=== PATIENT | male | born 1945 | race Caucasian/White ===

== ENCOUNTER 2016-11-19 13:44 | Inpatient (IN) ==
[2016-11-19] MEDS ORDERED: Lidocaine 1% 20 ML MDV ID ONE (14:11)
[2016-11-19] MEDS ORDERED: CeFAZolin Pre 2,000 MG/100 ML 2,000 MG/100 ML BAG IVPB ONE (14:11)
[2016-11-19] MEDS ORDERED: Acetaminophen IV 1,000 MG/100 ML INFUS..BTL IVPB ONE (14:18)
[2016-11-19] MEDS ORDERED: Famotidine 20 MG/2 ML VIAL IVP ONE (14:18)
--- NOTE | 2016-11-19 14:21 | Anesthesia Evaluation PreOp ---
Date of Encounter: 11/19/16 Time of Encounter: 14:20 - Past History Planned Operation: TURP Cardiac History: Denies any Significant Hx Pulmonary History: Denies Any Significant HX BUSPERSON History: Denies Any Significant HX Other Medical History: Renal (CKD), Diabetes Type II (Accu check 117) Anesthesia History: No Prior Anesthetic Complications Alcohol Use: none Drug use: none Medications and Allergies Aspirin 81 mg PO DAILY #30 tab.chew 05/31/16 [Rx] Ciprofloxacin [Cipro] 500 mg PO BID #20 tablet 05/31/16 [Rx] Indomethacin, Submicronized [Tivorbex] 25 mg PO DAILY 05/31/16 [History] Lamotrigine [Lamictal] 100 mg PO HS 05/31/16 [History] Omeprazole 20 mg PO BID 05/31/16 [History] Prazosin [Minipress] 2 mg PO DAILY 05/31/16 [History] Tamsulosin [Flomax] 0.4 mg PO DAILY 05/31/16 [History] TraZODone 100 mg PO HS 05/31/16 [History] Amlodipine [Norvasc] 10 mg PO DAILY 07/18/16 [History] Carboxymethylcellulose Sodium [Refresh Liquigel] 1 drop BOTH EYES QID 07/18/16 [ History] Chlorthalidone 25 mg PO DAILY 07/18/16 [History] Finasteride [Proscar] 5 mg PO DAILY 07/18/16 [History] Gabapentin [Neurontin] 1,200 mg PO HS 07/18/16 [History] Gabapentin [Neurontin] 600 mg PO BID 07/18/16 [History] Lisinopril [Zestril] 20 mg PO DAILY 07/18/16 [History] Mineral Oil/Petrolatum,White [Eucerin Creme] 1 appl TP DAILY PRN 07/18/16 [ History] Morphine Immed Rel [Morphine Sulfate] 30 mg PO Q8HR PRN 07/18/16 [History] Polyethylene Glycol 3350 [MiraLAX] 17 gm PO DAILY 07/18/16 [History] Simvastatin [Zocor] 5 mg PO DAILY 07/18/16 [History] Venlafaxine [Effexor] 225 mg PO DAILY 07/18/16 [History] Cefuroxime Axetil [Ceftin] 500 mg PO BID #24 tablet 07/20/16 [Rx] Allergies No Known Allergies Allergy (Verified 07/18/16 04:52) - Meds/Allergy Pre-op Review Medications Reviewed: Yes Allergies Reviewed: Yes Beta Blockers on Current Med List: No Anesthesia Results - Labs Laboratory Tests 06/22/14 10/28/16 10/28/16 Unknown 15:57 15:57 Hgb 13.6 Hct 38.9 Plt Count 333 Sodium 130 L Potassium 3.5 BUN 32 H POC Creatinine 1.47 H - Imaging EKG: report reviewed (SR) Additional studies: EF 60% Anesthesia Exam O2 Sat Height 1.75 m Weight 88.451 kg Height: 5'9 Weight: 195 lbs NPO (# of Hours): MN - HEENT Pupil (Motor): Pupils equal, EOMI Mallampati: II Teeth: Missing, Poor dentition Oral Opening: Greater than 3 - BUSPERSON LOC: Oriented BUSPERSON Motor: Normal RUE, Normal LUE, Normal RLE, Normal LLE, Normal Face BUSPERSON Sensory: Normal: RUE, LUE, RLE, LLE, Face - Cardiac Rhythm: Regular Murmur: None JVD: No Carotid Bruit: No - Pulmonary Breath Sounds: bilateral Clear Respiratory Effort: Symmetrical Anesthesia Assess/Plan ASA Score: 3 (DM CKD) Modified [place] Scale for Level of Consciousness: Cooperative, oriented, and tranquil Anesthetic Plan: General Monitoring Plan: Standard Monitors Recovery Plan: PACU (Discussed GA, agrees to proceed)
[2016-11-19] MEDS ORDERED: Ringers Solution, Lactated 1,000 ML IVC SCH (14:30)
[2016-11-19] MEDS ORDERED: *HR* Midazolam HCl 2 MG/2 ML VIAL ONE (14:55)
[2016-11-19] MEDS ORDERED: Lidocaine -MPF 2% 2 ML VIAL ONE (14:55)
[2016-11-19] MEDS ORDERED: *HR* FentaNYL (PF) 100 MCG/2 ML VIAL ONE (14:55)
[2016-11-19] MEDS ORDERED: *HR* Propofol 200 MG/20 ML VIAL IVP ONE ×2 (14:55→15:55)
[2016-11-19] MEDS ORDERED: Dexamethasone 4 MG/ML VIAL ONE (14:55)
[2016-11-19] MEDS ORDERED: Ondansetron 4 MG/2 ML VIAL ONE (14:55)
--- NOTE | 2016-11-19 15:21 | History & Physical Report ---
Date of Encounter: 11/19/16 Time of Encounter: 15:21 24 Hour HP Update - Instructions Instructions: If the History and Physical is less than 30 days old and was completed prior to A.M. admission and or procedure and has NOT been updated on calendar day of procedure please complete this update prior to performing procedure. - Update Patient reports changes in Medical Condition: No Changes in assessment/condition: No Changes in Medication: No Preop tests/diagnostics Reviewed: Yes Surgery Remains Indicated: Yes Consent for Planned Operative Procedure(s) Verified: Yes - Pre-Operative Checklist Preoperative Checklist Indicated: Yes Prophylactic Antibiotic Ordered: Yes Home Medications Include Beta Brice: No Is VTE Prophylaxis Indicated?: Yes
[2016-11-19] MEDS ORDERED: *HR* Promethazine 25 MG/ML VIAL IVP PRN ×2 (16:07→17:25)
[2016-11-19] MEDS ORDERED: *HR* HYDROmorphone (PF) 1 MG/ML SYRINGE IVP PRN (16:07)
--- NOTE | 2016-11-19 16:35 | Operative Note ---
Date of procedure: 11/19/16 Pre-op diagnosis: BPH, urinary retention Post-op diagnosis: same Procedure: TURP Implants: [address] Complications: none. Anesthesia: PEDRITO Surgeon: Herman Pope Estimated blood loss (cc): 25 Specimen: turp chips Condition: stable Disposition: PACU Procedure in Detail: INDICATIONS: Itz is a 71 year old gentleman, who has BPH and is incomplete bladder emptying. He has failed voiding trials. He wished to undergo a transurethral resection of prostate. He is aware of the risks of procedure including, but not limited to, bleeding, infection, injury to other structures, need for further procedures, incomplete bladder emptying, bladder neck contracture, urethral stricture, urinary incontinence, retrograde ejaculation, erectile dysfunction, and the risk of anesthesia. He is willing to proceed. DESCRIPTION OF PROCEDURE: After informed consent was obtained, the patient was brought back to the operating room and placed in supine position. Time-out was performed. General anesthesia was then administered and a laryngeal mask airway was placed. He was then placed in lithotomy position. His genitalia were prepped and draped in usual sterile fashion. The resector sheath was then introduced using the visual obturator to the urethra. The prostate showed lateral lobe hyperplasia. There was some enlargement of the median lobe. The ureteral orifices in the normal orthotopic position. There is no bladder tumor. There were 2+ trabeculations. I then inserted the Tabor element. The median lobe was taken down using electrocautery down to the level of the verumontanum. I then turned my attention to the left lateral lobe and this was resected away. Attention was then turned to the right lobe and this was resected away. I did perform a small amount of resection anteriorly as well. Once adequate resection was achieved, I then achieved hemostasis with electrocautery. All the TURP chips were irrigated out. I then confirmed hemostasis again. Once hemostasis was adequate, I removed the scope. The verumontanum and ureteral orifices were free of injury and left intact. A 22- Armenian three-way catheter was then placed, 60 mL was instilled in the balloon. The catheter was left on mild traction. Slow continuous bladder irrigation was started. The patient was then awakened from general anesthesia, brought to recovery room in good condition. All sponge, needle, and instrument counts were correct.
--- NOTE | 2016-11-19 17:20 | Anesthesia Evaluation Post Op ---
Date of Encounter: 11/19/16 Time of Encounter: 17:10 - Vital Signs Vital Signs: Vital Signs/O2 Sat/Glucose, Most Current Temp Pulse Resp BP Pulse Ox 11/19/16 17:01 97.7 F 72 16 148/79 97 11/19/16 16:51 75 16 147/88 97 11/19/16 16:41 78 18 151/80 94 L 11/19/16 16:36 77 16 147/69 95 11/19/16 16:31 98.4 F 79 18 105/83 100 - Lungs Lungs: Clear Ascult./Percussion - Airway Airway: Non-obstructed - Cardiovascular Regular Rate - Mental Status Mental Status: Alert & Oriented, Answers Appropriately - Pain Pain Scale: 0 - Nausea Vomiting Nausea Vomiting: Not Present - Hydration Hydration: Ice chips - Discharge PostOp Status: Transfer Patient to floor
[2016-11-19] MEDS ORDERED: Acetaminophen 325 MG TABLET PO PRN (17:25)
[2016-11-19] MEDS ORDERED: Naloxone 0.4 MG/ML INJ IVP PRN (17:25)
[2016-11-19] MEDS ORDERED: 0.9 % Sodium Chloride 1,000 ML IVC SCH (17:25)
[2016-11-19] MEDS ORDERED: *HR* HYDROmorphone 2 MG/ML SYRINGE IVP PRN (17:25)
[2016-11-19] MEDS ORDERED: Ondansetron 4 MG/2 ML VIAL IVP PRN (17:25)
[2016-11-19] MEDS: Artificial Tears SOLN 15 ML BOTTLE BOTH EYES SCH ×2 (18:22→20:31)
[2016-11-19] MEDS: *HR* OxyCODONE/APAP 5/325 TABLET PO PRN (20:28)
[2016-11-19] MEDS: Indomethacin 25 MG CAPSULE PO SCH (20:29)
[2016-11-19] MEDS: lamoTRIgine 100 MG TABLET PO SCH (20:30)
[2016-11-19] MEDS ORDERED: traZODone 50 MG TABLET PO SCH (21:00)
[2016-11-19] MEDS ORDERED: Gabapentin 400 MG CAPSULE PO SCH (23:00)
[2016-11-20 06:54] VITALS: BP 143/73
--- NOTE | 2016-11-20 07:10 | Discharge Summary ---
Date of Encounter: 11/20/16 Time of Encounter: 07:07 - Discharge Diagnosis (1) BPH (benign prostatic hypertrophy) with urinary retention Priority: Primary Status: Acute - Discharge Medications Home Medications: Aspirin 81 mg PO DAILY #30 tab.chew 05/31/16 [Rx] Ciprofloxacin [Cipro] 500 mg PO BID #20 tablet 05/31/16 [Rx] Indomethacin, Submicronized [Tivorbex] 25 mg PO BID 05/31/16 [History] Omeprazole 20 mg PO BID 05/31/16 [History] Tamsulosin [Flomax] 0.4 mg PO DAILY 05/31/16 [History] Amlodipine [Norvasc] 10 mg PO DAILY 07/18/16 [History] Carboxymethylcellulose Sodium [Refresh Liquigel] 1 drop BOTH EYES QID 07/18/16 [ History] Chlorthalidone 25 mg PO DAILY 07/18/16 [History] Finasteride [Proscar] 5 mg PO DAILY 07/18/16 [History] Gabapentin [Neurontin] 1,200 mg PO HS 07/18/16 [History] Gabapentin [Neurontin] 600 mg PO BID 07/18/16 [History] Lisinopril [Zestril] 20 mg PO DAILY 07/18/16 [History] Morphine Immed Rel [Morphine Sulfate] 30 mg PO Q8HR PRN 07/18/16 [History] Polyethylene Glycol 3350 [MiraLAX] 17 gm PO DAILY 07/18/16 [History] Simvastatin [Zocor] 5 mg PO DAILY 07/18/16 [History] Venlafaxine [Effexor] 225 mg PO DAILY 07/18/16 [History] Lamotrigine [Lamictal] 50 mg PO 1200 11/19/16 [History] Lamotrigine [Lamictal] 100 mg PO BID 11/19/16 [History] Multivitamin [One Daily Multivitamin] 1 each PO DAILY 11/19/16 [History] Prazosin HCl [Minipress] 2 mg PO HS 11/19/16 [History] Trazodone HCl 200 mg PO HS 11/19/16 [History] Allergies/Adverse Reactions: Allergies No Known Allergies Allergy (Verified 07/18/16 04:52) Labs on day of discharge: Labs from last 24 hours 11/19/16 11/19/16 16:35 14:10 POC Glucose 82 107 H Date of admission: 11/19/16 17:26 Primary care physician: PCP MO Discharging clinician: Herman Pope Anticipated date of discharge: 11/20/16 - Patient Status Disposition: Home, Self-Care Condition: Good Functional capacity at discharge: independent ambulation Overall status at discharge: patient is progressing back to baseline - Discharge Instructions Follow Up With: Herman Pope MD [Partnered Physician] - Additional Instructions: 1. No heavy lifting > 20# x 2 weeks. 2. Hold aspirin x 1 week. 3. F/U with Dr. Pope this week for a voiding trial. 4. Please provide catheter instructions, leg bag, leg strap, night bag, etc. - Hospital Course Hospital course: Mr. Kim is a 71 year old male with a history of BPH. He underwent a TURP on 11/19/2016. He was in retention prior to surgery. On POD #1 his urine was clear. His irrigation was stopped and he was discharged home later that day. - Time Spent with Patient Total time spent providing and/or coordinating discharge services: Less than 30 minutes Exam Initial Vital Signs Temp Pulse Resp BP Pulse Ox 98.4 F 79 18 105/83 100 11/19/16 16:31 11/19/16 16:31 11/19/16 16:31 11/19/16 16:31 11/19/16 16:31 - General physical appearance Present: well developed, well nourished, no distress - Eyes Absent: icteric - ENT Present: normal nares - Neck Present: no masses - Respiratory Present: normal respiratory effort - Cardiovascular Cardiovascular exam IM: RRR - Abdomen Abdomen: Present: soft - VTE Documentation of Mechanical Device: Intermittent pneumatic compression device
[2016-11-20] MEDS: *HR* OxyCODONE/APAP 5/325 TABLET PO PRN (08:17)
[2016-11-20] MEDS: lamoTRIgine 100 MG TABLET PO SCH (08:17)
[2016-11-20] MEDS: Artificial Tears SOLN 15 ML BOTTLE BOTH EYES SCH (08:23)
[2016-11-20] MEDS: Indomethacin 25 MG CAPSULE PO SCH (08:25)
[2016-11-20] MEDS ORDERED: amLODIPine 5 MG TABLET PO SCH (09:00)
[2016-11-20] MEDS ORDERED: Finasteride 5 MG TABLET PO SCH (09:00)
[2016-11-20] MEDS ORDERED: Lisinopril 20 MG TABLET PO SCH (09:00)
[2016-11-20] MEDS ORDERED: Gabapentin 300 MG CAPSULE PO SCH (11:00)
[2016-11-20] MEDS ORDERED: lamoTRIgine 100 MG TABLET PO SCH (12:00)
== END 2016-11-20 11:07 | disposition home or self-care (01) | DRG 714 ==
LOC: SAMDAY 13:44 → 3BNU 17:26
PROVIDERS: ADMIT Urology; ATTEND Urology
PROC: UROTURP (2016-11-19 15:30)

== ENCOUNTER 2017-09-09 18:18 | Inpatient (IN) ==
[2017-09-09 19:22] LABS: Basophils % 0.4 %; Eosinophils # 0.2 K/mcL (0.0-0.6); Hematocrit 33.1 % (37.5-50.1); Hemoglobin 10.6 g/dL (12.9-16.9); Immature Granulocytes % 2.1 % (0-4); Lymphocytes # 1.3 K/mcL (0.6-4.6); Lymphocytes % 14.3 %; Mean Corpuscular Hemoglobin 31.3 pg (28.0-33.3); Mean Corpuscular Volume 97.6 fL (83.0-100.0); Monocytes # 0.6 K/mcL (0.0-1.3); Monocytes % 6.6 %; Platelet Count 330 K/mcL (140-400); Red Blood Count 3.39 M/mcL (4.19-5.50); Red Cell Distribution Width 13.7 % (11.5-14.5); Segmented Neutrophils % 74.6 %
[2017-09-09 19:28] LABS: INR 1.2; Prothrombin Time 13.1 Seconds (9.4-12.1)
[2017-09-09 19:31] LABS: Activated Partial Thrombo Time 33.6 Seconds (26.0-36.0)
[2017-09-09 19:39] LABS: Potassium 4.1 mEq/L (3.5-5.1)
[2017-09-09] MEDS ORDERED: Aspirin 325 MG TABLET PO ONE (20:19)
--- NOTE | 2017-09-09 20:51 | Emergency Department Note ---
Disposition Clinical Impression: Chest pain Qualifiers: Chest pain type: unspecified Qualified Code(s): R07.9 - Chest pain, unspecified Disposition: Admitted As Inpatient Condition: Good Time of Disposition: 20:58 Chest Pain HPI - General Chief Complaint: ED Chest Pain Stated Complaint: CP / Elevated Trop Time Seen by Provider: 09/09/17 18:42 Source: patient Limitations: no limitations Vital Signs Reviewed: Yes Nursing Notes Reviewed: Yes - History of Present Illness HPI Narrative: Mr. Kim is a 72yo man with history of hypertension, hyperlipidemia, TIA, renal disease, DM2 who was seen the [facility] earlier today due to left-sided chest pain that radiated towards his left arm. The pain was associated with shortness of breath. At that time he had an EKG which did not demonstrate any ischemic changes however her troponin was elevated at 0.098. The patient was transported from [facility] to our ED. Upon examination the patient says that he is no longer having any chest pain. He described the chest pain is left -sided with radiation towards his arm and severe. He said that this pain is similar to heart attacks that he has had in the past, and he says that he was told that he had a heart attack. The pain was not worsened by anything, lasted for about an hour and then resolve. It was not worsened with exertion nor was it associated with any shortness of breath. He has had increased fatigue. The patient denies any nausea or vomiting, back pain, visual changes or disturbances. Severity scale (1-10): 0 - Related Data Home Medications Medication Instructions Recorded Confirmed Omeprazole 20 mg PO BID 05/31/16 09/09/17 Tamsulosin [Flomax] 0.4 mg PO DAILY 05/31/16 09/09/17 Carboxymethylcellulose Sodium 1 drop BOTH EYES QID 07/18/16 09/09/17 [Refresh Liquigel] Chlorthalidone 25 mg PO DAILY 07/18/16 09/09/17 Finasteride [Proscar] 5 mg PO DAILY 07/18/16 09/09/17 Gabapentin [Neurontin] 1,200 mg PO HS 07/18/16 09/09/17 Gabapentin [Neurontin] 600 mg PO BID 07/18/16 09/09/17 Morphine Immed Rel [Morphine 30 mg PO Q8HR PRN 07/18/16 09/09/17 Sulfate] Polyethylene Glycol 3350 [MiraLAX] 17 gm PO HS 07/18/16 09/09/17 Simvastatin [Zocor] 5 mg PO HS 07/18/16 09/09/17 amLODIPine [Norvasc] 10 mg PO DAILY 07/18/16 09/09/17 Multivitamin [One Daily 1 each PO DAILY 11/19/16 09/09/17 Multivitamin] Prazosin HCl [Minipress] 2 mg PO HS 11/19/16 09/09/17 Trazodone HCl 150 mg PO HS 11/19/16 09/09/17 lamoTRIgine [Lamictal] 100 mg PO BID 11/19/16 09/09/17 Acetaminophen [Tylenol] 650 mg PO TID PRN 09/09/17 09/09/17 Dextrose [Glucose] 16 - 32 gm PO AD PRN 09/09/17 09/09/17 Hydrophilic Cream [Basle] 1 appl TP DAILY 09/09/17 09/09/17 Indomethacin [Indocin] 25 mg PO BIDWM 09/09/17 09/09/17 Lisinopril 30 mg PO DAILY 09/09/17 09/09/17 Metoprolol XL (24 HR) Succ [Toprol 25 mg PO DAILY 09/09/17 09/09/17 XL] Nut.tx.gluc.intoler,Lac-Fr,Soy 1 can PO DAILY 09/09/17 09/09/17 [Glucerna] Venlafaxine XR (24 HR) [Effexor XR] 225 mg PO QAM 09/09/17 09/09/17 Previous Rx's Medication Instructions Recorded Aspirin 81 mg PO DAILY #30 tab.chew 05/31/16 Allergies Allergy/AdvReac Type Severity Reaction Status Date / Time No Known Allergies Allergy Verified 09/09/17 18:33 Constitutional: Denies: fever, chills, weakness Eyes: Denies: vision change ENT ED: Denies: congestion Cardiovascular: Reports: chest pain. Denies: palpitations, dyspnea on exertion , orthopnea, paroxysmal nocturnal dyspnea Respiratory: Reports: dyspnea. Denies: cough, wheezes, hemoptysis Gastrointestinal: Denies: abdominal pain, nausea, vomiting, melena, hematochezia Genitourinary: Denies: urgency, dysuria, frequency Musculoskeletal: Denies: back pain Integumentary: Denies: rash Neurological: Denies: headache, confusion, vertigo Psychiatric: Denies: anxiety Endocrine: Reports: fatigue Hematological/Lymphatic: Denies: easy bleeding Chest Pain PMH - Past Medical History Medical history: Reports: arthritis, diabetes, GERD, hyperlipidemia, hypertension, renal disease, TIA Surgical history: Reports: orthopedic, other Psychiatric history: Reports: anxiety, depression, PTSD - Social History Smoking Status: Former smoker Alcohol use: Reports: none Drug use: Reports: none Physical Exam Gen.: Vitals noted. No acute distress. AAOx3 HEENT: oropharynx clear, Normocephalic, atraumatic Neck: Supple. No adenopathy. Cardiac: RRR, no murmur, +S1/S2 Pulmonary: CTA bilaterally, no wheezes, rales or rhonchi, equal chest expansion Abdomen: soft, nontender, BS noted, no guarding Back: Nontender throughout. MSK: ROM intact, no joint swelling noted Extremities: no BLE edema, nontender calf, no cyanosis or clubbing Neuro: A&Ox3, moves all extremities, no focal deficits Psych: Appropriate mood and behavior - General Limitations: no limitations General appearance: alert Course Vital Signs Temperature 98.0 F 09/09/17 18:21 Pulse Rate 80 09/09/17 18:21 Respiratory Rate 16 09/09/17 18:21 Blood Pressure 110/73 09/09/17 18:21 O2 Sat by Pulse Oximetry 95 09/09/17 18:21 Temperature 98.7 F 09/09/17 21:46 Pulse Rate 85 09/09/17 21:46 Respiratory Rate 16 09/09/17 21:46 Blood Pressure 123/67 09/09/17 21:46 O2 Sat by Pulse Oximetry 92 09/09/17 21:46 Oxygen Delivery Oxygen Delivery Room Air Chest Pain - MDM Narrative Medical decision making narrative: I reviewed this patient's labs and imaging. Upon arrival the patient's EKG demonstrated no acute changes from that taken at the ED of the [facility]. a repeat troponin did demonstrate intermittent narrowing 0.09 elevation. I cannot find any documentation of previous ischemic workup, including left heart catheterization. Although the patient's chest pain has resolved, the patient does have symptoms concerning for cardiac event and his troponin is elevated, heart score 5. I gave this patient on aspirin on arrival. Vitals have remained stable. I spoke to the hospitalist who accepts this patient. - Medical Records Medical records reviewed: Yes I reviewed the patient's medical records. - Lab Data Lab results reviewed: Yes I reviewed the patient's lab results. Result diagrams: 09/09/17 19:11 09/09/17 19:11 Lab Results 09/09/17 09/09/17 09/09/17 Range/Units 19:11 19:11 19:11 WBC 9.4 (4.3-11.1) K/mcL RBC 3.39 L (4.19-5.50) M/mcL Hgb 10.6 L (12.9-16.9) g/dL Hct 33.1 L (37.5-50.1) % MCV 97.6 (83.0-100.0) fL MCH 31.3 (28.0-33.3) pg MCHC 32.0 (31.6-35.5) g/dL RDW 13.7 (11.5-14.5) % Plt Count 330 (140-400) K/mcL MPV 9.0 L (9.4-12.4) fL Immature Gran % 2.1 (0-4) % Seg Neutrophils % 74.6 % Lymphocytes % 14.3 % Monocytes % 6.6 % Eosinophils % 2.0 % Basophils % 0.4 % Neutrophils # 7.0 (1.6-8.9) K/mcL Lymphocytes # 1.3 (0.6-4.6) K/mcL Monocytes # 0.6 (0.0-1.3) K/mcL Eosinophils # 0.2 (0.0-0.6) K/mcL Basophils # 0.0 (0.0-0.2) K/mcL PT 13.1 H (9.4-12.1) Seconds INR 1.2 APTT 33.6 (26.0-36.0) Seconds Sodium 136 (136-145) mEq/L Potassium 4.1 (3.5-5.1) mEq/L Chloride 99 (98-107) mEq/L Carbon Dioxide 33 H (23-29) mEq/L BUN 30 H (8-23) mg/dL Creatinine 1.55 H (0.70-1.30) mg/dL Est GFR ( Amer) 54 L (> 60) Est GFR (Non-Af Amer) 44 L (> 60) BUN/Creatinine Ratio 19 (6-26) Glucose 84 (70-105) mg/dL Calculated Osmolality 287 (280-300) Calcium 9.0 (8.6-10.3) mg/dL Troponin I (< 0.04) ng/mL 09/09/17 Range/Units 19:11 WBC (4.3-11.1) K/mcL RBC (4.19-5.50) M/mcL Hgb (12.9-16.9) g/dL Hct (37.5-50.1) % MCV (83.0-100.0) fL MCH (28.0-33.3) pg MCHC (31.6-35.5) g/dL RDW (11.5-14.5) % Plt Count (140-400) K/mcL MPV (9.4-12.4) fL Immature Gran % (0-4) % Seg Neutrophils % % Lymphocytes % % Monocytes % % Eosinophils % % Basophils % % Neutrophils # (1.6-8.9) K/mcL Lymphocytes # (0.6-4.6) K/mcL Monocytes # (0.0-1.3) K/mcL Eosinophils # (0.0-0.6) K/mcL Basophils # (0.0-0.2) K/mcL PT (9.4-12.1) Seconds INR APTT (26.0-36.0) Seconds Sodium (136-145) mEq/L Potassium (3.5-5.1) mEq/L Chloride (98-107) mEq/L Carbon Dioxide (23-29) mEq/L BUN (8-23) mg/dL Creatinine (0.70-1.30) mg/dL Est GFR ( Amer) (> 60) Est GFR (Non-Af Amer) (> 60) BUN/Creatinine Ratio (6-26) Glucose (70-105) mg/dL Calculated Osmolality (280-300) Calcium (8.6-10.3) mg/dL Troponin I 0.09 H* (< 0.04) ng/mL - Radiology Data Radiology results reviewed: Yes I reviewed the patient's radiology results. - EKG Data EKG attestation: Yes I reviewed and interpreted this EKG. EKG results narrative: EKG shows sinus rhythm with first-degree heart block with a rate of 73, NC 216, QRS 113, QTC 434 Heart Score - Score History: Slightly Suspicious EKG: Non Specific repolarisation Disturbance Age: Greater than 65 Risk Factors: 1-2 risk factors Troponin: 1-3x normal limit HEART Score Total: 5 Attestation Statement - Attestation Attestation: I examined this patient and my medical decision-making was reviewed with the Resident Physician. I agree with the documented findings, disposition and treatment plan as described except to the extent set forth below. Findings consistent with elevated cardiac biomarkers. EKG is nondiagnostic for STEMI. Plan to admit for further evaluation and cardiac consultation.
[2017-09-09] MEDS ORDERED: *HR* Morphine Immed Rel 30 MG TABLET PO PRN (23:03)
[2017-09-09] MEDS ORDERED: Acetaminophen 325 MG TABLET PO PRN (23:03)
[2017-09-09] MEDS ORDERED: Naloxone 0.4 MG/ML INJ IVP PRN (23:05)
[2017-09-09] MEDS ORDERED: *HR* Morphine 2 MG/ML SYRINGE IVP PRN (23:05)
[2017-09-09] MEDS ORDERED: Nitroglycerin 0.4 MG TAB.SUBL SL PRN (23:11)
--- NOTE | 2017-09-09 23:11 | Internal Med History&Physical ---
Date of Encounter: 09/09/17 Time of Encounter: 23:09 Assessment and Plan (1) Chest pain Current visit: Yes Status: Acute trend trop for now check TTE if continue to trend up , would rec consult cards if stable with resolution of symptoms, would consider stress testing trial of nitro prn for symptoms Qualifiers: Chest pain type: precordial pain Qualified Code(s): R07.2 - Precordial pain (2) Elevated troponin Current visit: No Status: Acute continue to trend (3) Essential hypertension Current visit: No Status: Chronic continue med (4) Osteoarthritis Current visit: No Status: Chronic continue chronic pain med for pain control Qualifiers: Osteoarthritis location: unspecified site Osteoarthritis type: primary Qualified Code(s): M19.91 - Primary osteoarthritis, unspecified site Internal Medicine - H&P: HPI Chief complaint: CP History of present illness: Mr. Kim is a 72 year old male who presents with Chest pain. He denies hx of stent or cardiac interventions but has a hx of chronic pain syndrome involving his ankles/knees probably from arthritis He reports hx chest pain before that has been chronic but today shortly after getting up, he developed left sided chest pain described as sharp/burning in sensation , 10/10 at worse, radiate to epigastrium and left side of the chest. The pain initially developed with at rest but later had some exertional component to his symptoms. [facility] for eval On review, he reports that he also has ankle, knee pain that hurts when he walks. He is on chronic pain med. EKG personally reviewed with rate 73,NSR, 1st degree AV block , non-specific ST changes XR/XR chest 1V portable IMPRESSION: Mild bibasilar disease may represent atelectasis and or pneumonia. Severe bilateral glenohumeral joint arthropathy. Past Med Surg Social Fam HX - Past Medical History Medical history: arthritis, diabetes, GERD, hyperlipidemia, hypertension, renal disease, TIA Psychiatric history: anxiety, depression, PTSD - Past Surgical History Surgical History: orthopedic, other - Social History Smoking Status: Former smoker Smokeless Tobacco Status: No Alcohol use: none Drug use: none - Family History Father Living Status: Mother Living Status: Internal Medicine - H&P: Meds Aspirin 81 mg PO DAILY #30 tab.chew 09/19/16 [Rx] Omeprazole 20 mg PO BID 05/31/16 [History] Tamsulosin [Flomax] 0.4 mg PO DAILY 05/31/16 [History] Carboxymethylcellulose Sodium [Refresh Liquigel] 1 drop BOTH EYES QID 07/18/16 [ History] Chlorthalidone 25 mg PO DAILY 07/18/16 [History] Finasteride [Proscar] 5 mg PO DAILY 07/18/16 [History] Gabapentin [Neurontin] 1,200 mg PO HS 07/18/16 [History] Gabapentin [Neurontin] 600 mg PO BID 07/18/16 [History] Morphine Immed Rel [Morphine Sulfate] 30 mg PO Q8HR PRN 07/18/16 [History] Polyethylene Glycol 3350 [MiraLAX] 17 gm PO HS 07/18/16 [History] Simvastatin [Zocor] 5 mg PO HS 07/18/16 [History] amLODIPine [Norvasc] 10 mg PO DAILY 07/18/16 [History] Multivitamin [One Daily Multivitamin] 1 each PO DAILY 11/19/16 [History] Prazosin HCl [Minipress] 2 mg PO HS 11/19/16 [History] Trazodone HCl 150 mg PO HS 11/19/16 [History] lamoTRIgine [Lamictal] 100 mg PO BID 11/19/16 [History] Acetaminophen [Tylenol] 650 mg PO TID PRN 09/09/17 [History] Dextrose [Glucose] 16 - 32 gm PO AD PRN 09/09/17 [History] Hydrophilic Cream [Basle] 1 appl TP DAILY 09/09/17 [History] Indomethacin [Indocin] 25 mg PO BIDWM 09/09/17 [History] Lisinopril 30 mg PO DAILY 09/09/17 [History] Metoprolol XL (24 HR) Succ [Toprol XL] 25 mg PO DAILY 09/09/17 [History] Nut.tx.gluc.intoler,Lac-Fr,Soy [Glucerna] 1 can PO DAILY 09/09/17 [History] Venlafaxine XR (24 HR) [Effexor XR] 225 mg PO QAM 09/09/17 [History] 3 Allergy/AdvReac Type Severity Reaction Status Date / Time No Known Allergies Allergy Verified 09/09/17 18:33 All Systems PM: A 10-system review of systems was performed and is negative for pertinent findings except as documented above in the HPI. Review of systems: ROS 14 point review of systems reviewed as best as possible given presentation. Pertinent positive or negative as per HPI or otherwise reviewed as negative - Constitutional Vitals: Temp Pulse Resp BP Pulse Ox 98.7 F 85 16 123/67 92 09/09/17 21:46 09/09/17 21:46 09/09/17 21:46 09/09/17 21:46 09/09/17 21:46 Exam: General - AAO x 3 Psych - Appropriate affect/speech. No agitation Eyes - SAM. Eye lids intact. No scleral icterus Heart - Sinus. RRR. S1 and S2 present. No added HS/murmurs appreciated. No elevated JVD appreciated. Lung - Adequate air entry b/l, No crackles/wheezes appreciated GI - Soft, non-tender. No hepatosplenomegaly/ascites. BS+ - No CVA/suprapubic tenderness or palpable bladder distension Skin - Intact. No rash/petechiae/ecchymosis. Warm extremities MSK - Joints with normal ROM. No joint swellings Internal Med - H&P Results - Labs CBC & Chem 7: 09/09/17 19:11 09/09/17 19:11
[2017-09-10] MEDS: traZODone 50 MG TABLET PO SCH ×2 (02:13→20:01)
[2017-09-10 05:30] LABS: Basophils % 0.6 %; Eosinophils # 0.3 K/mcL (0.0-0.6); Eosinophils % 3.9 %; Hematocrit 28.9 % (37.5-50.1); Hemoglobin 9.3 g/dL (12.9-16.9); Immature Granulocytes % 1.5 % (0-4); Lymphocytes # 1.5 K/mcL (0.6-4.6); Lymphocytes % 20.2 %; Mean Corpuscular HGB Conc 32.2 g/dL (31.6-35.5); Mean Corpuscular Hemoglobin 31.1 pg (28.0-33.3); Mean Corpuscular Volume 96.7 fL (83.0-100.0); Mean Platelet Volume 9.1 fL (9.4-12.4); Monocytes # 0.7 K/mcL (0.0-1.3); Neutrophils # 4.6 K/mcL (1.6-8.9); Platelet Count 305 K/mcL (140-400); Red Blood Count 2.99 M/mcL (4.19-5.50); Red Cell Distribution Width 13.8 % (11.5-14.5); Segmented Neutrophils % 63.8 %
[2017-09-10 05:49] LABS: BUN/Creatinine Ratio 22 (6-26); Blood Urea Nitrogen 26 mg/dL (8-23); Calcium 8.9 mg/dL (8.6-10.3); Carbon Dioxide 33 mEq/L (23-29); Chloride 104 mEq/L (98-107); Glucose 78 mg/dL (70-105); Osmolality,Calculated 296 (280-300); Potassium 4.1 mEq/L (3.5-5.1); Sodium 141 mEq/L (136-145); eGFR For African Americans > 60 (> 60); eGFR For Non-African Americans 59 (> 60)
[2017-09-10] MEDS ORDERED: Lisinopril 20 MG TABLET PO SCH (09:00)
[2017-09-10] MEDS: Venlafaxine XR (24 HR) 75 MG CAP.ER.24H PO SCH (09:59)
[2017-09-10] MEDS: Aspirin 81 MG TAB.CHEW PO SCH (09:59)
[2017-09-10] MEDS: lamoTRIgine 100 MG TABLET PO SCH ×2 (10:00→20:01)
[2017-09-10] MEDS: amLODIPine 5 MG TABLET PO SCH (10:00)
[2017-09-10] MEDS: Gabapentin 300 MG CAPSULE PO SCH ×2 (10:00→20:02)
[2017-09-10] MEDS: Metoprolol XL (24 HR) Succ 25 MG TAB.ER.24H PO SCH (10:01)
[2017-09-10] MEDS: Finasteride 5 MG TABLET PO SCH (10:01)
--- NOTE | 2017-09-10 13:24 | Internal Med Progress Note ---
Date of Encounter: 09/10/17 Time of Encounter: 13:20 - Assessment and plan (1) Chest pain Current Visit: Yes Status: Acute Assessment and plan: Slightly elevated Trop EKG showed some non specific ST changes will get stress test in AM since he is high risk for ACS cont ASA, Nitro PRN and statin will f/u on 2 D Echo Qualifiers: Chest pain type: precordial pain Qualified Code(s): R07.2 - Precordial pain (2) Hypoxia Current Visit: Yes Status: Acute Assessment and plan: mostly due to deconditioning / mild COPD exacerbation will do home O2 eval He does have multiple medical comorbidities and need to stay in the hospital more 2 nights, so will switch him to full admission today. I did review my colleague Dr. Martel's H & P including HPI, PMH, pSH, FH , SH and ROS, no changes noticed. (3) COPD (chronic obstructive pulmonary disease) Current Visit: Yes Status: Acute Assessment and plan: he seems to be in mild COPD exacerbation no need of systemic setroids will place him on Duoneb + INH steroids Qualifiers: COPD type: COPD with acute exacerbation Qualified Code(s): J44.1 - Chronic obstructive pulmonary disease with (acute) exacerbation (4) Elevated troponin Current Visit: No Status: Acute Assessment and plan: due to demand ischemia trended down will get stress test in AM (5) Essential hypertension Current Visit: No Status: Chronic Assessment and plan: stable.. cut back on Lisinorpil since his BP running little low also d/c chlorthalidone (6) Osteoarthritis Current Visit: No Status: Chronic Qualifiers: Osteoarthritis location: unspecified site Osteoarthritis type: primary Qualified Code(s): M19.91 - Primary osteoarthritis, unspecified site (7) HERBERTH (acute kidney injury) Current Visit: No Status: Acute Assessment and plan: improved (8) BPH (benign prostatic hypertrophy) with urinary retention Current Visit: No Status: Acute (9) Falls frequently Current Visit: Yes Status: Acute Assessment and plan: PT / OT eval - Subjective Interval history: Mr. Kim is a 72 year old male with known HTN, HLD, chronic low back pain, who recently hospitalized at [facility] with PNA and UTI now [facility] found to have low BP and also he c/o chest pain. He denied any previous cardiac work up. Pt's family also mentioned lately he is so weak and falling so frequently. He denied any CP now. Denied any SOB / BLANTON. However he is currently on 2 lit O2. - Constitutional Vitals: Temp Pulse Resp BP Pulse Ox 98.7 F 78 16 116/70 95 09/10/17 11:14 09/10/17 11:14 09/10/17 11:14 09/10/17 11:14 09/10/17 11:14 General appearance: Present: A&O X 3, no acute distress, answers questions appropriately - Head Head exam: Present: atraumatic, normal inspection - Respiratory Respiratory exam: Present: decreased breath sounds, wheezes (mild). Absent: rales, respiratory distress, rhonchi - Cardiovascular Cardiovascular exam: Present: RRR, +S1, +S2. Absent: tachycardia - GI/Abdominal GI/Abdominal exam: Present: normal bowel sounds, soft. Absent: rebound, rigid, tenderness - Extremities Exam Extremities exam: Absent: calf tenderness, pedal edema, tenderness - Back Exam Back exam: Absent: CVA tenderness (L), CVA tenderness (R) - Neurological Exam Neurological exam: Present: alert, oriented X3 - Psychiatric Psychiatric exam: Present: normal affect, normal mood Internal Medicine: Result - Labs CBC & Chem 7: 09/10/17 05:21 09/10/17 05:21 Labs: Short CBC 09/10/17 Range/Units 05:21 WBC 7.2 (4.3-11.1) K/mcL Hgb 9.3 L (12.9-16.9) g/dL Hct 28.9 L (37.5-50.1) % Plt Count 305 (140-400) K/mcL Neutrophils # 4.6 (1.6-8.9) K/mcL BMP 09/10/17 05:21 Sodium 141 Potassium 4.1 Chloride 104 Carbon Dioxide 33 H BUN 26 H Creatinine 1.20 Glucose 78 Calcium 8.9 Cardiac Enzymes 09/09/17 09/10/17 09/10/17 Range/Units 23:17 05:21 11:19 Troponin I 0.09 H* 0.07 H* 0.05 H* (< 0.04) ng/mL - ABG Interpretation ABG results: PT/INR, D-dimer PT 13.1 Seconds (9.4-12.1) H 09/09/17 19:11 Consult Discharge Plan - Plan [facility]errals[facility] [Primary Care Provider[facility] -
[2017-09-10] MEDS ORDERED: Ipratropium/Albuterol Neb 3 ML IH PRN (13:33)
[2017-09-10] MEDS: Lisinopril 20 MG TABLET PO SCH (15:59)
[2017-09-10] MEDS ORDERED: traZODone 50 MG TABLET PO SCH (21:00)
[2017-09-10] MEDS: Budesonide Neb 0.5 MG/2 ML IH SCH (21:59)
[2017-09-11] MEDS: *HR* Enoxaparin 40 MG/0.4 ML SYRINGE SQ SCH (06:03)
[2017-09-11] MEDS ORDERED: Regadenoson 0.4 MG/5 ML SYRINGE IVP ONE (06:21)
[2017-09-11] MEDS: Budesonide Neb 0.5 MG/2 ML IH SCH ×2 (10:30→22:24)
[2017-09-11] MEDS: Venlafaxine XR (24 HR) 75 MG CAP.ER.24H PO SCH (11:33)
[2017-09-11] MEDS: amLODIPine 5 MG TABLET PO SCH (11:33)
[2017-09-11] MEDS: lamoTRIgine 100 MG TABLET PO SCH ×2 (11:33→21:12)
[2017-09-11] MEDS: Aspirin 81 MG TAB.CHEW PO SCH (11:33)
[2017-09-11] MEDS: Gabapentin 300 MG CAPSULE PO SCH (11:34)
[2017-09-11] MEDS: Finasteride 5 MG TABLET PO SCH (11:34)
[2017-09-11] MEDS: Lisinopril 20 MG TABLET PO SCH (11:34)
[2017-09-11] MEDS: Metoprolol XL (24 HR) Succ 25 MG TAB.ER.24H PO SCH (11:34)
--- NOTE | 2017-09-11 14:30 | Internal Med Progress Note ---
Date of Encounter: 09/11/17 Time of Encounter: 14:23 - Assessment and plan (1) Chest pain Current Visit: Yes Status: Acute Assessment and plan: Slightly elevated Trop EKG showed some non specific ST changes Stress test showed fixed perfusion defect in the inferior wall associated with abnormal wall motion consulted Card for further eval cont ASA, B darwin, ACEI, Nitro PRN and statin will f/u on 2 D Echo Qualifiers: Chest pain type: precordial pain Qualified Code(s): R07.2 - Precordial pain (2) Hypoxia Current Visit: Yes Status: Acute Assessment and plan: mostly due to deconditioning / mild COPD exacerbation Need home o2 eval (3) COPD (chronic obstructive pulmonary disease) Current Visit: Yes Status: Acute Assessment and plan: he seems to be in mild COPD exacerbation no need of systemic steroids Cont him on Duoneb + INH steroids Qualifiers: COPD type: COPD with acute exacerbation Qualified Code(s): J44.1 - Chronic obstructive pulmonary disease with (acute) exacerbation (4) Elevated troponin Current Visit: No Status: Acute Assessment and plan: trended down abnormal stress test consulted Card for further eval (5) Essential hypertension Current Visit: No Status: Chronic Assessment and plan: stable d/c chlorthalidone (6) Osteoarthritis Current Visit: No Status: Chronic Qualifiers: Osteoarthritis location: unspecified site Osteoarthritis type: primary Qualified Code(s): M19.91 - Primary osteoarthritis, unspecified site (7) HERBERTH (acute kidney injury) Current Visit: No Status: Acute Assessment and plan: improved (8) BPH (benign prostatic hypertrophy) with urinary retention Current Visit: No Status: Acute (9) Falls frequently Current Visit: Yes Status: Acute Assessment and plan: PT / OT eval May need ECF placement for short term rehab - Subjective Interval history: Mr. Kim is a 72 year old male with known HTN, HLD, chronic low back pain, who recently hospitalized at [facility] with PNA and UTI now [facility] found to have low BP and also he c/o chest pain. He denied any previous cardiac work up. Pt's family also mentioned lately he is so weak and falling so frequently. He denied any CP now. Denied any SOB / BLANTON. He is still on 2 lit O2. No events over night - Constitutional Vitals: Temp Pulse Resp BP Pulse Ox 98.1 F 63 16 136/77 96 09/11/17 12:01 09/11/17 12:01 09/11/17 12:01 09/11/17 12:01 09/11/17 12:01 General appearance: Present: A&O X 3, no acute distress, answers questions appropriately - Head Head exam: Present: atraumatic, normal inspection - Neck Neck exam general surgery: Present: supple - Respiratory Respiratory exam: Present: decreased breath sounds. Absent: respiratory distress, rhonchi, wheezes - Cardiovascular Cardiovascular exam: Present: RRR, +S1, +S2. Absent: tachycardia - GI/Abdominal GI/Abdominal exam: Present: normal bowel sounds, soft. Absent: rebound, rigid, tenderness - Extremities Exam Extremities exam: Absent: calf tenderness, pedal edema, tenderness - Back Exam Back exam: Absent: CVA tenderness (L), CVA tenderness (R) - Psychiatric Psychiatric exam: Present: normal affect, normal mood Internal Medicine: Result - Labs CBC & Chem 7: 09/10/17 05:21 09/10/17 05:21 - ABG Interpretation ABG results: PT/INR, D-dimer PT 13.1 Seconds (9.4-12.1) H 09/09/17 19:11 Consult Discharge Plan - Plan [facility]errals: [facility] [Primary Care Provider] -
[2017-09-11] MEDS: traZODone 50 MG TABLET PO SCH (21:13)
[2017-09-12 04:47] LABS: BUN/Creatinine Ratio 20 (6-26); Blood Urea Nitrogen 20 mg/dL (8-23); Carbon Dioxide 32 mEq/L (23-29); Chloride 101 mEq/L (98-107); Glucose 115 mg/dL (70-105); Magnesium 1.7 mg/dL (1.6-2.6); Osmolality,Calculated 290 (280-300); Potassium 3.8 mEq/L (3.5-5.1); Sodium 138 mEq/L (136-145); eGFR For African Americans > 60 (> 60); eGFR For Non-African Americans > 60 (> 60)
[2017-09-12] MEDS: Gabapentin 300 MG CAPSULE PO SCH ×3 (05:54→21:00)
[2017-09-12] MEDS: *HR* Enoxaparin 40 MG/0.4 ML SYRINGE SQ SCH (06:28)
[2017-09-12] MEDS: Budesonide Neb 0.5 MG/2 ML IH SCH ×2 (07:55→20:38)
[2017-09-12 08:52] LABS: Hematocrit 34.4 % (37.5-50.1); Immature Platelets 1.8 % (1.1-6.1); Mean Corpuscular HGB Conc 32.8 g/dL (31.6-35.5); Mean Corpuscular Hemoglobin 31.1 pg (28.0-33.3); Mean Corpuscular Volume 94.8 fL (83.0-100.0); Mean Platelet Volume 8.7 fL (9.4-12.4); Red Blood Count 3.63 M/mcL (4.19-5.50)
[2017-09-12 08:53] LABS: Hemoglobin 11.3 g/dL (12.9-16.9)
[2017-09-12] MEDS: amLODIPine 5 MG TABLET PO SCH (09:44)
[2017-09-12] MEDS: Metoprolol XL (24 HR) Succ 25 MG TAB.ER.24H PO SCH (09:44)
[2017-09-12] MEDS: Aspirin 81 MG TAB.CHEW PO SCH (09:44)
[2017-09-12] MEDS: Finasteride 5 MG TABLET PO SCH (09:44)
[2017-09-12] MEDS: lamoTRIgine 100 MG TABLET PO SCH ×2 (09:44→20:59)
[2017-09-12] MEDS: Venlafaxine XR (24 HR) 75 MG CAP.ER.24H PO SCH (09:44)
[2017-09-12] MEDS: Lisinopril 20 MG TABLET PO SCH (09:44)
--- NOTE | 2017-09-12 11:16 | Cardiology Consult Note ---
<Dejah Mckinley - Last Filed: 09/12/17 11:25> Date of Encounter: 09/12/17 Time of Encounter: 08:30 Assessment and Plan (1) COPD (chronic obstructive pulmonary disease) Current Visit: Yes Status: Acute Per cardiology: -Mild exacerbation per primary service. -States breathing improved today. -Management per primary service. Qualifiers: COPD type: COPD with acute exacerbation Qualified Code(s): J44.1 - Chronic obstructive pulmonary disease with (acute) exacerbation (2) Elevated troponin Current Visit: No Status: Acute Per cardiology: -Troponins 0.09, 0.09, 0.07, 0.05. Troponins flat and adynamic in the setting of COPD exacerbation. Do not suspect NSTEMI. -Admits to intermittent atypical chest pain at rest. Denies exertional symptoms. Denies current chest pain. -ECG with new T wave inversions noted. -Stress test with area of infarct noted, alma-infarct ischemia, and visual TID. Of note, patient and deny previous LHC or previous IL. -TTE with LVEF preserved, no segmental wall motion abnormalities. -ON asa, statin, beta darwin. -Laid patient flat to assess ability to lay for LHC. Patient reported he was short of breath while laying flat. PLan for LHC in am. -DO not suspect NSTEMI, suspect demand ischemia related to above. No cardiac rehab warranted at this time. -PLan for LHC in am due to abnormal stress results. Discussed and reviewed risks versus benefits with patient and . Both agreeable to proceed. -Will repeat labs in am. -NPO after midnight. -Further recommendations pending LHC. (3) Chest pain Current Visit: Yes Status: Acute Per cardiology: - reports intermittent chest pain at rest. -Denies exertional chest pain. -Denies current chest pain. -ECG with T wave inversions noted. -Troponins mildly elevated. -PLan for LHC in am. -Further recommendations pending LHC. Qualifiers: Chest pain type: unspecified Qualified Code(s): R07.9 - Chest pain, unspecified Discussion w patient/family: The assessment and plan as outlined above was discussed with the patient and/or family members who expressed understanding and agreement. All questions were answered. Thank you for involving us in the care of your patient. Please call with any questions. Discussed and reviewed with . History of Present Illness Consult date: 09/11/17 Requesting physician: Cristofer Saul Consult reason: abnormal stress test Chief complaint: weakness, falls History of present illness: Mr. Kim is a 72 year old male with a relevant past medical history of PTSD , hyperlipidemia, DMII, GERD, obesity. Patient presented to [facility] due to weakness and frequent falls. Most of patients history was obtained by his who states that 2 weeks ago patient was treated and released from [facility] for pneumonia. Patient's states he has been progressively getting weaker and falling frequently. states he has been complaining of intermittent chest pain, typically at rest. Patient's denies aggravating or alleviating factors. states he has also been getting progressively more short of breath. Of note, patient's states that occasionally he will have some periods of confusion. At time, of assessement alert and oriented. Patient denies current chest pain and states breathing is improved today. Past Med Surg Social Fam HX - Past Medical History Attestation: Yes The following information was validated with the patient. Source: patient, old records reviewed, obtained from family Medical history: arthritis, diabetes, GERD, hyperlipidemia, hypertension, renal disease, TIA Psychiatric history: anxiety, depression, PTSD - Past Surgical History Surgical History: orthopedic, other - Social History Smoking Status: Former smoker Smokeless Tobacco Status: No Alcohol use: none Drug use: none - Family History Father Living Status: Mother Living Status: Medications and Allergies Aspirin 81 mg PO DAILY #30 tab.chew 05/31/16 [Rx] Omeprazole 20 mg PO BID 05/31/16 [History] Tamsulosin [Flomax] 0.4 mg PO DAILY 05/31/16 [History] Carboxymethylcellulose Sodium [Refresh Liquigel] 1 drop BOTH EYES QID 07/18/16 [ History] Chlorthalidone 25 mg PO DAILY 07/18/16 [History] Finasteride [Proscar] 5 mg PO DAILY 07/18/16 [History] Gabapentin [Neurontin] 1,200 mg PO HS 07/18/16 [History] Gabapentin [Neurontin] 600 mg PO BID 07/18/16 [History] Morphine Immed Rel [Morphine Sulfate] 30 mg PO Q8HR PRN 07/18/16 [History] Polyethylene Glycol 3350 [MiraLAX] 17 gm PO HS 07/18/16 [History] Simvastatin [Zocor] 5 mg PO HS 07/18/16 [History] amLODIPine [Norvasc] 10 mg PO DAILY 07/18/16 [History] Multivitamin [One Daily Multivitamin] 1 each PO DAILY 11/19/16 [History] Prazosin HCl [Minipress] 2 mg PO HS 11/19/16 [History] Trazodone HCl 150 mg PO HS 11/19/16 [History] lamoTRIgine [Lamictal] 100 mg PO BID 11/19/16 [History] Acetaminophen [Tylenol] 650 mg PO TID PRN 09/09/17 [History] Dextrose [Glucose] 16 - 32 gm PO AD PRN 09/09/17 [History] Hydrophilic Cream [Basle] 1 appl TP DAILY 09/09/17 [History] Indomethacin [Indocin] 25 mg PO BIDWM 09/09/17 [History] Lisinopril 30 mg PO DAILY 09/09/17 [History] Metoprolol XL (24 HR) Succ [Toprol XL] 25 mg PO DAILY 09/09/17 [History] Nut.tx.gluc.intoler,Lac-Fr,Soy [Glucerna] 1 can PO DAILY 09/09/17 [History] Venlafaxine XR (24 HR) [Effexor XR] 225 mg PO QAM 09/09/17 [History] 3 Allergy/AdvReac Type Severity Reaction Status Date / Time No Known Allergies Allergy Verified 09/09/17 18:33 All Systems Review: A 10-system review of systems was performed and is negative for pertinent findings except as documented above in the HPI. - Constitutional Constitutional: frequent falls, weakness - Cardiovascular Cardiovascular: as per HPI, chest pain at rest, dyspnea on exertion - Neurological Neurological: dizziness Physical Examination Vital Signs, Last 4 Hours Temp Pulse Resp BP Pulse Ox 09/12/17 07:55 16 97 09/12/17 07:46 98.0 F 70 16 145/78 91 General: Conversant, No Apparent Distress HEENT: Atraumatic, Normocephaly, Mucus Membranes Moist Neck: No JVD, Normal carotid pulses Cardiac: Reg Rate and Rhythm, Normal S1 and S2, No Murmur Lungs: Normal Breath Sounds, No Wheeze, Rales, Rhonchi Neuro: Alert and responsive, No focal deficits noted Abdomen: Soft, Non-Tender Skin: No rashes noted on visualized skin Musculoskeletal: No Chest Wall Tenderness Extremities: No Clubbing, No Cyanosis, No Edema, Normal Pulses Results 09/12/17 08:45 09/12/17 03:46 Lab Results Impressions Echocardiogram 09/10/17 23:07 Impressions: Technically adequate exam. Atrial fibrillation. LVEF 60%. Normal LV chamber size, wall thickness and function. Mildly dilated left atrium. Left Ventricular Wall Motion: Rest Echo Findings All wall segments showed normal motion. Findings: Study Quality * Technically adequate exam. ECG Findings * Atrial fibrillation. Left Ventricle * * LVEF 60%. * There is no LV thrombus. * Normal LV chamber size, wall thickness and function. Right Ventricle * Normal right ventricular structure and function. Left Atrium * Mildly dilated left atrium. Right Atrium * Normal right atrial size. Interatrial Septum * No evidence of PFO by color Doppler. Aortic Valve * Trileaflet aortic valve. * Mildly sclerotic aortic valve leaflets. * Trileaflet aortic valve with normal function. Mitral Valve * Mild mitral regurgitation. * Normal mitral valve structure and function. Aorta * Normally sized aortic root. Pericardium * The pericardium appears normal. Tricuspid Valve * Trace tricuspid regurgitation. Active Medications Acetaminophen (Tylenol) 650 mg PO TID PRN PRN Reason: Pain Stop: 03/11/18 23:04 Albuterol/Ipratropium (Duoneb) 3 ml IH [id number] PRN PRN Reason: Shortness Of Breath/Wheezing Stop: 03/12/18 13:34 Amlodipine Besylate (Norvasc) 10 mg PO DAILY [facility] PRN Reason: Protocol Stop: 03/12/18 09:01 Last Admin: 09/12/17 09:44 Dose: 10 mg Aspirin (Aspirin) 81 mg PO DAILY [facility] Stop: 03/12/18 09:01 Last Admin: 09/12/17 09:44 Dose: 81 mg Budesonide (Pulmicort Neb) 0.5 mg IH BIDR [facility] Stop: 03/12/18 22:01 Last Admin: 09/12/17 07:55 Dose: 0.5 mg Enoxaparin Sodium (Lovenox) 40 mg SQ 0600 [facility] PRN Reason: Protocol Stop: 03/13/18 06:01 Last Admin: 09/12/17 06:28 Dose: 40 mg Finasteride (Proscar) 5 mg PO DAILY [facility] PRN Reason: Protocol Stop: 03/12/18 09:01 Last Admin: 09/12/17 09:44 Dose: 5 mg Gabapentin (Neurontin) 600 mg PO BID [facility] Stop: 03/12/18 09:01 Last Admin: 09/12/17 09:44 Dose: 600 mg Lamotrigine (Lamictal) 100 mg PO BID [facility] Stop: 03/12/18 09:01 Last Admin: 09/12/17 09:44 Dose: 100 mg Lisinopril (Zestril) 20 mg PO DAILY [facility] Stop: 03/12/18 13:31 Last Admin: 09/12/17 09:44 Dose: 20 mg Metoprolol Succinate (Toprol Xl) 25 mg PO DAILY [facility] Stop: 03/12/18 09:01 Last Admin: 09/12/17 09:44 Dose: 25 mg Morphine Sulfate (Morphine Sulfate) 2 mg IVP Q4HR PRN PRN Reason: Severe Pain (7-10) Stop: 03/11/18 23:06 Morphine Sulfate (Morphine Sulfate) 30 mg PO Q8HR PRN PRN Reason: Pain Stop: 03/11/18 23:04 Naloxone HCl (Narcan) 0.4 mg IVP Q2MIN PRN PRN Reason: Opioid Reversal Stop: 03/11/18 23:06 Nitroglycerin (Nitroglycerin) 0.4 mg SL Q5MIN PRN PRN Reason: Chest Pain Stop: 03/11/18 23:12 Omeprazole (Prilosec) 20 mg PO BIDAC [facility] Stop: 03/12/18 07:31 Last Admin: 09/12/17 06:28 Dose: 20 mg Polyethylene Glycol (Miralax) 17 gm PO HS [facility] Stop: 03/12/18 21:01 Last Admin: 09/11/17 21:11 Dose: 17 gm Prazosin HCl (Minipress) 2 mg PO HS [facility] Stop: 03/12/18 21:01 Last Admin: 09/11/17 21:12 Dose: 2 mg Simvastatin (Zocor) 5 mg PO HS [facility] PRN Reason: Protocol Stop: 03/12/18 21:01 Last Admin: 09/11/17 21:12 Dose: 5 mg Tamsulosin HCl (Flomax) 0.4 mg PO HS [facility] PRN Reason: Protocol Stop: 03/12/18 21:01 Last Admin: 09/11/17 21:13 Dose: 0.4 mg Trazodone HCl (Trazodone) 150 mg PO HS [facility] Stop: 03/12/18 02:05 Last Admin: 09/11/17 21:13 Dose: 150 mg Venlafaxine HCl ([facility] Xr) [facility] Stop: 03/12/18 09:01 Last Admin: 09/12/17 09:44 Dose: 225 mg Laboratory Tests 09/09/17 09/09/17 09/10/17 19:11 23:17 05:21 Hgb Creatinine Troponin I 0.09 H* 0.09 H* 0.07 H* 09/10/17 09/12/17 09/12/17 11:19 03:46 08:45 Hgb 11.3 L D Creatinine 1.00 Troponin I 0.05 H* - Imaging and Cardiology Chest Xray: report reviewed Stress Test: report reviewed Echo: report reviewed - EKG Interpretation EKG results cardiology: personally reviewed (ECG with SR, HR 73. New T wave inversions noted in leads I, II, aVL.), other (Telemetry reviewed with average HR previous 12 hours noted to be 65, sinus rhythm. PVCs noted.) Consult Discharge Plan - Plan [facility]errals: [facility] Provider[facility] - <Calin Alan - Last Filed: 09/12/17 23:06> Date of Encounter: 09/12/17 Time of Encounter: 21:00 - Attending Attestation I have personally performed a face to face evaluation on this patient. I have reviewed and agree with the care plan. History and Exam by me shows: 1. Elevated troponin, initially elevated, reletively flat, suspect due to demand ischemia with acute exacerbation of COPD 2. COPD : acute exacerbation responding to inhalation tx 3. CAD: New diagnosis, note new ischemic changes on EKG, stress test shows previous IL, with alma-infarct ischemia, with normal LV systolic function on echo suggestive of dynamic ischemic process, discussed with pt and family, recommend LHC/[facility] to evaluate for possible revascularization. Pt elects to proceed with diagnostic imaging and PCI if indicated. Pt denies chest pain, but at bedside reports several episodes of chest pain over last several months which have occurred with exertion. Assessment and Plan Discussion w patient/family: The assessment and plan as outlined above was discussed with the patient and/or family members who expressed understanding and agreement. All questions were answered. Thank you for involving us in the care of your patient. Please call with any questions. History of Present Illness History of present illness: Mr. Kim is a 72 year old male All Systems Review: A 10-system review of systems was performed and is negative for pertinent findings except as documented above in the HPI. Physical Examination Vital Signs, Last 4 Hours Temp Pulse Resp BP Pulse Ox 09/12/17 22:46 98.4 F 62 18 101/62 95 09/12/17 20:38 17 94 Results 09/12/17 08:45 09/12/17 03:46 Lab Results 09/12/17 09/12/17 03:46 08:45 WBC 7.1 Hgb 11.3 L D Hct 34.4 L Plt Count 360 Sodium 138 Potassium 3.8 Chloride 101 Carbon Dioxide 32 H BUN 20 Creatinine 1.00 Glucose 115 H Calcium 9.0 Magnesium 1.7
--- NOTE | 2017-09-12 14:36 | Internal Med Progress Note ---
Date of Encounter: 09/12/17 Time of Encounter: 14:15 - Assessment and plan (1) Chest pain Current Visit: Yes Status: Acute Assessment and plan: Slightly elevated Trop EKG showed some non specific ST changes Stress test showed fixed perfusion defect in the inferior wall associated with abnormal wall motion Card consulted Scheduled for LHC in AM NPO after mid night cont ASA, B darwin, ACEI, Nitro PRN and Statin 2 D Echo showed LVEF 60%, Normal LV wall thickness Qualifiers: Chest pain type: unspecified Qualified Code(s): R07.9 - Chest pain, unspecified (2) Hypoxia Current Visit: Yes Status: Acute Assessment and plan: mostly due to deconditioning / mild COPD exacerbation Need home O2 eval (3) COPD (chronic obstructive pulmonary disease) Current Visit: Yes Status: Acute Assessment and plan: he seems to be in mild COPD exacerbation no need of systemic steroids Cont him on Duoneb + INH steroids Qualifiers: COPD type: COPD with acute exacerbation Qualified Code(s): J44.1 - Chronic obstructive pulmonary disease with (acute) exacerbation (4) Elevated troponin Current Visit: No Status: Acute Assessment and plan: trended down abnormal stress test consulted Card for further eval (5) Essential hypertension Current Visit: No Status: Chronic Assessment and plan: stable d/c chlorthalidone (6) Osteoarthritis Current Visit: No Status: Chronic Qualifiers: Osteoarthritis location: unspecified site Osteoarthritis type: primary Qualified Code(s): M19.91 - Primary osteoarthritis, unspecified site (7) HERBERTH (acute kidney injury) Current Visit: No Status: Acute Assessment and plan: improved (8) BPH (benign prostatic hypertrophy) with urinary retention Current Visit: No Status: Acute (9) Falls frequently Current Visit: Yes Status: Acute Assessment and plan: PT / OT eval May need ECF placement for short term rehab - Subjective Interval history: Mr. Kmi is a 72 year old male with known HTN, HLD, chronic low back pain, who recently hospitalized at [facility] with PNA and UTI now [facility] pt found to have low BP and also he c/o chest pain. He denied any previous cardiac work up. Pt's family also mentioned lately he is so weak and falling so frequently. He denied any CP now. Denied any SOB / BLANTON. He is still on 1.5 lit O2. No events over night - Constitutional Vitals: Temp Pulse Resp BP Pulse Ox 97.9 F 66 16 128/68 95 09/12/17 12:02 09/12/17 12:02 09/12/17 12:02 09/12/17 12:02 09/12/17 12:02 General appearance: Present: A&O X 3, no acute distress, answers questions appropriately - Head Head exam: Present: atraumatic, normal inspection - Neck Neck exam general surgery: Present: supple - Respiratory Respiratory exam: Present: decreased breath sounds. Absent: rales, respiratory distress, rhonchi, wheezes - Cardiovascular Cardiovascular exam: Present: RRR, +S1, +S2. Absent: tachycardia - GI/Abdominal GI/Abdominal exam: Present: normal bowel sounds, soft. Absent: rebound, rigid, tenderness - Extremities Exam Extremities exam: Absent: calf tenderness, pedal edema, tenderness - Back Exam Back exam: Absent: CVA tenderness (L), CVA tenderness (R) - Psychiatric Psychiatric exam: Present: normal affect, normal mood Internal Medicine: Result - Labs CBC & Chem 7: 09/12/17 08:45 09/12/17 03:46 Labs: Short CBC 09/12/17 Range/Units 08:45 WBC 7.1 (4.3-11.1) K/mcL Hgb 11.3 L D (12.9-16.9) g/dL Hct 34.4 L (37.5-50.1) % Plt Count 360 (140-400) K/mcL BMP 09/12/17 03:46 Sodium 138 Potassium 3.8 Chloride 101 Carbon Dioxide 32 H BUN 20 Creatinine 1.00 Glucose 115 H Calcium 9.0 - ABG Interpretation ABG results: PT/INR, D-dimer PT 13.1 Seconds (9.4-12.1) H 09/09/17 19:11 - Impressions Impressions Echocardiogram 09/10/17 23:07 Impressions: Technically adequate exam. Atrial fibrillation. LVEF 60%. Normal LV chamber size, wall thickness and function. Mildly dilated left atrium. Left Ventricular Wall Motion: Rest Echo Findings All wall segments showed normal motion. Findings: Study Quality * Technically adequate exam. ECG Findings * Atrial fibrillation. Left Ventricle * * LVEF 60%. * There is no LV thrombus. * Normal LV chamber size, wall thickness and function. Right Ventricle * Normal right ventricular structure and function. Left Atrium * Mildly dilated left atrium. Right Atrium * Normal right atrial size. Interatrial Septum * No evidence of PFO by color Doppler. Aortic Valve * Trileaflet aortic valve. * Mildly sclerotic aortic valve leaflets. * Trileaflet aortic valve with normal function. Mitral Valve * Mild mitral regurgitation. * Normal mitral valve structure and function. Aorta * Normally sized aortic root. Pericardium * The pericardium appears normal. Tricuspid Valve * Trace tricuspid regurgitation. Consult Discharge Plan - Plan [facility]errals: [facility] [Primary Care Provider] -
[2017-09-12] MEDS: traZODone 50 MG TABLET PO SCH (20:59)
[2017-09-12] MEDS ORDERED: Artificial Tears SOLN 15 ML BOTTLE BOTH EYES PRN (22:55)
[2017-09-13 06:08] LABS: Hematocrit 33.9 % (37.5-50.1); Hemoglobin 11.1 g/dL (12.9-16.9); Mean Corpuscular HGB Conc 32.7 g/dL (31.6-35.5); Mean Corpuscular Hemoglobin 31.3 pg (28.0-33.3); Mean Corpuscular Volume 95.5 fL (83.0-100.0); Mean Platelet Volume 9.3 fL (9.4-12.4); Platelet Count 331 K/mcL (140-400); Red Blood Count 3.55 M/mcL (4.19-5.50); Red Cell Distribution Width 13.2 % (11.5-14.5)
[2017-09-13 06:20] LABS: BUN/Creatinine Ratio 25 (6-26); Blood Urea Nitrogen 20 mg/dL (8-23); Calcium 9.3 mg/dL (8.6-10.3); Carbon Dioxide 34 mEq/L (23-29); Chloride 101 mEq/L (98-107); Glucose 86 mg/dL (70-105); Osmolality,Calculated 290 (280-300); Potassium 4.3 mEq/L (3.5-5.1); Sodium 139 mEq/L (136-145); eGFR For African Americans > 60 (> 60); eGFR For Non-African Americans > 60 (> 60)
[2017-09-13] MEDS: Venlafaxine XR (24 HR) 75 MG CAP.ER.24H PO SCH (08:10)
[2017-09-13] MEDS: amLODIPine 5 MG TABLET PO SCH (08:10)
[2017-09-13] MEDS: lamoTRIgine 100 MG TABLET PO SCH ×2 (08:10→21:25)
[2017-09-13] MEDS: Metoprolol XL (24 HR) Succ 25 MG TAB.ER.24H PO SCH (08:10)
[2017-09-13] MEDS: Lisinopril 20 MG TABLET PO SCH (08:10)
[2017-09-13] MEDS: Gabapentin 300 MG CAPSULE PO SCH ×2 (08:10→21:25)
[2017-09-13] MEDS: Aspirin 81 MG TAB.CHEW PO SCH (08:11)
[2017-09-13] MEDS: Finasteride 5 MG TABLET PO SCH (08:11)
--- NOTE | 2017-09-13 09:41 | Event Note ---
Date of Encounter: 09/13/17 Time of Encounter: 09:30 - Cardiology Event Note Patient with abnormal stress test. Plan for LHC today. Risks versus benefits of LHC explained to patient and . Stated understanding and agreeable to proceed. Patient alert and oriented x2 this morning. Confused to time. states that patient has some confusion at baseline. is next of kin and agreeable for LHC. Further recommendations pending LHC.
[2017-09-13] MEDS ORDERED: 0.9 % Sodium Chloride 1,000 ML ONE ×2 (10:44→11:28)
[2017-09-13] MEDS ORDERED: *HR* Heparin 10,000 UNIT/10 ML VIAL ONE (10:44)
[2017-09-13] MEDS ORDERED: Heparin 1,000 UNITS/500 mL 500 ML ONE (10:44)
[2017-09-13] MEDS ORDERED: Nitroglycerin 1,000 MCG/10 ML VIAL IV ONE (10:44)
[2017-09-13] MEDS: Budesonide Neb 0.5 MG/2 ML IH SCH ×2 (10:47→21:38)
--- NOTE | 2017-09-13 11:22 | Pre-Sedation Evaluation ---
Pre-sedation evaluation - Pre-sedation checklist Date of procedure: 09/13/17 Procedure: heart cath Recent Vitals: Last Vital Signs Temp 97.7 F 09/13/17 10:56 Pulse 63 09/13/17 10:56 Resp 17 09/13/17 10:56 BP 131/82 09/13/17 10:56 Pulse Ox 100 09/13/17 10:56 H&P (including ROS) documented in medical record: Yes Previous reaction to sedatives/anesthetics: No Dietary Status: NPO after Midnight Airway Assessment: Patient can open mouth completely, TMJ function normal, Micrognathia (under-bite, receding chin) absent, Neck with adequate range of motion Dentition: poor dentition Possible difficult airway: No ASA Classification *see protocol: CLASS II-Mild systemic disease Plan of Care: Pt appropriate candidate for procedure/moderate/conscious sedation , Risks/benefits of procedure/sedation discussed w/ patient/family
--- NOTE | 2017-09-13 11:28 | Electrocardiograph Report ---
[place] [id number] Test Date: 2017-09-09 Pat Name: Itz Kim Department: 103 Room: 3B Gender: M Hat Copyist: EKP : 1945 Requested By: Ceasar Ordoñez Order Number: [id number] Reading MD: Garrison Louis DO Measurements Intervals [place] Rate: 73 P: 182 [place]: 216 QRS: 199 QRSD: 113 T: 176 QT: 409 QTc: 434 Interpretive Statements SINUS RHYTHM WITH FIRST DEGREE AV BLOCK POSSIBLE RIGHT VENTRICULAR HYPERTROPHY CONSIDER LIMB LEAD REVERSAL - REPEAT ECG Electronically Signed On 09-13-2017 11:27:02 EST by Garrison Louis DO
[2017-09-13] MEDS ORDERED: *HR* FentaNYL (PF) 100 MCG/2 ML VIAL ONE (11:34)
[2017-09-13] MEDS ORDERED: *HR* Midazolam HCl 2 MG/2 ML VIAL ONE (11:34)
--- NOTE | 2017-09-13 12:16 | Invasive Diagnostic Lab Proc ---
Name: Itz Kim Date of Study: 09/13/2017 Date: 1945 Ht: 70.9in Medical Record#: [id number] Age: 72 Wt: 205.03lb Gender: Male BSA: 2.13 Order #: [id number] BMI: 28.7 Physicians Procedure Physician: Kristy Norton MD, [facility] Referring MD: Referring MD: Staff Name Position Time In Sites, Irma RT (R) Scrub 11:35 AM Awilda Yuen RT (R) Monitor 11:35 AM Ina Vital RN Thoracic Surgeon 11:35 AM Indications Indication Abnormal Test - Stress Procedures Performed Procedure L HRT ARTERY/VENTRICLE ANGIO Pre-Procedure Checklist Informed consent is complete signed and on chart. H&P is on chart. ID band is on and ID verified with patient. Patient NPO for procedure The procedure was described for the patient and questions were answered. Blood Pressure: 112/71 ECG is on chart. Rhythm: NSR Plan of Care Patient will tolerate the procedure without complications. Adequate level of comfort will be maintained. Hemodynamics will remain stable Patient will recover from procedure without complications. Respiratory function will be maintained. Cardiac rhythm will remain stable. Patient temperature will be maintained. Patient and/or family have verbalized understanding of the procedure. Patient Education Chief Complaint/Reason for Test: Cardiac Cath Developmental Category: Geriatric (65+ years) Developmentally Appropriate for Age: Yes Learning Barriers: None Education Needs: Procedure Education Method: Verbal Information Taught: Cardiac Cath Educational Evaluation: Able to repeat information Intravenous Access Time IV Size Location DC'd Fluid/Drip Rate Units RN 11:38 AM 20g 1 09/15" Patent On Arrival Rt Wrist 0.9NaCl 25 ml/hr Tere Bianchi RN Allergies No Known Allergies Vital Signs Time BP (mmHg) HR (bpm) O2 Sat. RR (bpm) LOC 112 / 71 72 92 % 16 5 = Fully awake and oriented or at pre-proc level 11:37 AM / % 4 = Oriented but drowsy 11:37 AM / % 4 = Oriented but drowsy 11:35 AM 140 / 81 64 97 % 27 11:40 AM 141 / 77 63 98 % 14 11:45 AM 142 / 75 63 100 % 15 11:50 AM 139 / 69 69 99 % 16 11:55 AM 140 / 68 68 99 % 15 Procedural Medications Time Medication Dose Units Method Given By 11:36 AM Oxygen 2 L/min nasal cannula Ina Vital RN 11:36 AM Versed 2 mg Intravenous Ina Vital RN 11:36 AM Fentanyl 50 mcg Intravenous Ina Vital RN 11:45 AM Lidocaine 2% 15 ml Subcutaneous Kristy Norton MD, [facility] ASA Classification: CLASS II- Mild systemic disease (i.e. well-controlled diabetes, hypertension, asthma, cigarette smoking) Mark Score Preprocedure Postprocedure Activity 2- Moves 4 extremities sustained head lift Activity 2- Moves 4 extremities sustained head lift Circulation 2- SBP +/= 20 points of pre-anesthetic level Circulation 2- SBP +/= 20 points of pre-anesthetic level Consciousness 2- Awake and alert oriented x 3 Consciousness 2- Awake and alert oriented x 3 O2 Saturation 2- Able to maintain O2 satruation of 92% on room air O2 Saturation 2- Able to maintain O2 satruation of 92% on room air Respiratory 2- Able to deep breathe and cough well Respiratory 2- Able to deep breathe and cough well Total Score 10 Total Score 10 Contrast Agent: Isovue Diagnostic Contrast: 74 ml Total Contrast: 74 ml Fluoro Dose: 233 mGy Procedure Log Time Note Enter By 11:22 AM CathStat 11:34 AM Vitals capture started with the following parameters, Patient=Adult, Interval=5 min, Initial Lbualhld=975 mmHg, Deflation Rate=5 mmHg, Cuff placed on Left Arm 11:34 AM Pt arrived to labor and delivery registered nurse 2 at 11:34 [email or web address] 11:34 AM Patient charges- Angio tray pack, Navilyst 3mm J, Pulse Oximetry and ACIST tubing and transducer [email or web address] 11:35 AM Physician arrived 11:35 [email or web address] 11:35 AM Travis and jaswant completed [email or web address] 11:35 AM Sign in performed according to hospital policy. [email or web address] 11:35 AM Procedure start 11:35 [email or web address] 11:35 AM Irma Sandhu RT (R) Position: Scrub Time in: 11:35 [email or web address] 11:35 AM Awilda Yuen RT (R) Position: Monitor Time in: 11:35 [email or web address] 11:35 AM Ina Vital RN Position: Thoracic Surgeon Time in: 11:35 [email or web address] 11:35 AM BONNIE Holt RN shadowing [email or web address] 11:35 AM HR=64 bpm, CISN=513/81 mmhg, SpO2=97.0 %, Resp=27 B/min 11:36 AM Time: 11:36 Oxygen on at 2 L/min per nasal cannula by Ina Vital RN [email or web address] 11:36 AM Time: 11:36 Versed 2 mg Intravenous Given by Ina Vital RN [email or web address] 11:36 AM Time: 11:36 Fentanyl 50 mcg Intravenous Given by Ina Vital RN [email or web address] 11:37 AM Time: 11:37 Patient comfortable and pain free: Yes [email or web address] 11:37 AM Time: 11:37LOC: 4 = Oriented but drowsy [email or web address] 11[facility] AM HR=63 bpm, VTHH=812/77 mmhg, SpO2=98.0 %, Resp=14 B/min, Comment=NSR 11:42 AM Pressure channel 2 zeroed. 11:44 AM Time out performed according to hospital policy [email or web address] 11:45 AM HR=63 bpm, HAQK=805/75 mmhg, OtN8=554.0 %, Resp=15 B/min, Comment=NSR 11:45 AM Time: 11:45 15 ml Lidocaine 2% to right groin Subcutaneous [facility] by [email or web address] 11:46 AM Access obtained by percutaneous puncture. 5Fr 10cm Terumo Chester sheath placed in right Femoral artery. [id number] [email or web address] 11:46 AM 5Fr FL 4 catheter [facility] over the [email or web address] AM 0.035 145cm Navilyst 3mmJ wire [id number] [email or web address] 11:47 AM LCA angiography performed in multiple views. [email or web address] 11:47 AM Recorded Pressure: Ao, HR=65, Condition=Condition 1 (Aorta) Ao 118/66/89 11:48 AM Catheter removed [email or web address] 11:48 AM 5Fr FR 4 catheter inserted over the wire [email or web address] 11[facility] AM RCA angiography performed in multiple views. [email or web address] 11:49 AM Recorded Pressure: Ao, HR=63, Condition=Condition 1 (Aorta) Ao 126/71/96 11:50 AM [facility]ter [email or web address] 11:50 AM HR=69 bpm, CRFL=531/69 mmhg, SpO2=99.0 %, Resp=16 B/min, Comment=NSR 11:50 AM 5Fr Pigtail catheter inserted over the wire [facility] 3 11:51 AM Pressure channel 2 zeroed. 11:51 AM Recorded Pressure: LV, HR=69, Condition=Condition 1 (Left Ventricle) LV 125/5/7 11:51 AM Catheter selectively placed in left ventricle [email or web address] 11:52 AM Bolus angiogram of left Ventricle complete: 8 ml/sec for a total of 24 mls [email or web address] 11:52 AM Recorded Pressure: LV, Ao, HR=69, Condition=Condition 1 (Left Ventricle) LV 113/20/38, (Aorta) Ao 128/16/74 11:52 AM Time: 11:37LOC: 4 = Oriented but drowsy [email or web address] 11:52 AM Time: 11:37 Patient comfortable and pain free: Yes [email or web address] 11:55 AM HR=68 bpm, GFJR=549/68 mmhg, SpO2=99.0 %, Resp=15 B/min, Comment=NSR 11:56 AM Catheter removed [email or web address] 11:57 AM Bolus angiogram of right Femoral complete: 4 ml/sec for a total of 7 mls [email or web address] 11:57 AM Procedure completed at 11:56 [email or web address] 11:57 AM Sign out completed: Radiation Dose 232.92 mGy Fluoro Time: 1.0 Isovue 370 - 200ml contrast 74 ml given by Kristy Norton MD, [facility]. Complications: NoneCardiac Rehab Consult needed: NoConfirmed administered medications: Yes [email or web address] 11:57 AM Isovue 370 - 200ml,1 Bottle(s) used. [email or web address] 11:57 AM Arterial sheath pulled, Mynx closure device used and was Successful S/N. [email or web address] 11:58 AM Estimated Blood Loss: minimal [email or web address] 11:58 AM Post ECG NSR [email or web address] 11:58 AM Post Blood Pressure 140/68 [email or web address] 11:58 AM Education needs Procedure, Plan of Care, and Disease Process [email or web address] 11:58 AM Learning barriers :None [email or web address] 11:58 AM Education Methods Verbal [email or web address] 11:58 AM Education evaluation Able to repeat information [email or web address] 12:00 PM Site status No bleeding/hematoma - Rt Groin as reported by Sites, Irma RT (R) at 12:00 [email or web address] 12:00 PM Opsite applied [email or web address] 12:00 PM Delay to floor No [email or web address] 12:00 PM Family placed in consult room. [email or web address] 12:00 PM Complications: None [email or web address] 12:00 PM Fluoro Time: 1 [email or web address] 12:00 PM Isovue 370 - 200ml contrast 74 ml given by Kristy Norton MD, [facility]. [email or web address] 12:00 PM Radiation Dose 232.92 mGy [email or web address] 12:03 PM Coronary Dominance: right [email or web address] 12:07 PM Time: 11:52 Patient comfortable and pain free: [email or web address] 12:10 PM Patient out of room: 12:10 [email or web address] Complications Complication None None Hemodynamics Pressures Site Systolic/A Wave Diastolic/V Wave Mean AO 118 66 89 AO 126 71 96 LV 125 5 7 LV 113 20 38 AO 128 16 74 Post Procedure Information Blood Pressure: 140/68 mmHg Rhythm: NSR Post procedural instructions were given Closure Device Time Device Success/Fail 09/13/2017 12:00:00 PM MynxGrip Successful Site Checks Time Location Status Staff Sheath In? Note 12:00 PM Rt Groin No bleeding/hematoma Sites, Irma RT (R) Pulses Time Site Pre-Procedure Post-Procedure Note Bilateral DP & PT 2+ Updated by Awilda Yuen RT(R) on 09/13/2017 12:10:48 PM electronically signed on 09/13/2017 12:11:12 PM with status of Final
--- NOTE | 2017-09-13 13:29 | Event Note ---
Date of Encounter: 09/13/17 Time of Encounter: 13:26 - Cardiology Event Note LHC with 40% proximal LAD, 30% proximal circumflex, 20% ramus, 99% distal RCA, 100% RPDA [employer]ANG[employer]AGE [employer] DIVISION CHAIR that fills via left to right collaterals. Medical management recommended. Patient is on asa, statin, beta darwin. Cardiology will sign off and will follow in outpatient setting. Follow up set.
--- NOTE | 2017-09-13 17:07 | Internal Med Progress Note ---
Date of Encounter: 09/13/17 Time of Encounter: 09:00 - Assessment and plan (1) Chest pain Current Visit: Yes Status: Acute Assessment and plan: Patient presented with chest pain from the [place] and his primary care office. He was found to have hypotension and chest pain, family reports recent history of weakness and increased falls. He was recently hospitalized for pneumonia and UTI, as well. He has had no chest pain since arrival. Patient had mildly elevated troponin with nonspecific ST changes on his EKG. Echo showed preserved EF and no significant valvular dysfunction. Patient had an abnormal stress test and was evaluated by cardiology. LHC today showed single-vessel disease with no intervention. Patient will continue aspirin, beta darwin, Temo, statin. Patient will continue nitroglycerin when necessary. Qualifiers: Chest pain type: unspecified Qualified Code(s): R07.9 - Chest pain, unspecified (2) Elevated troponin Current Visit: No Status: Acute Assessment and plan: Patient with mildly elevated troponin 0.09, 0.07, 0.05. This is flat and adynamic with COPD exacerbation. Plan as above. (3) Essential hypertension Current Visit: Yes Status: Chronic Assessment and plan: Chronic. Continue home medications. Blood pressure is well controlled. (4) Diabetes mellitus Current Visit: Yes Status: Chronic Assessment and plan: A1c is 5.7 in November. We will redraw in the morning. Continue sliding scale insulin, Accu-Cheks before meals at bedtime, diabetic diet. Qualifiers: Diabetes mellitus type: type 2 Diabetes mellitus complication status: without complication Diabetes mellitus intermission coordinator insulin use: without fci use Qualified Code(s): E11.9 - Type 2 diabetes mellitus without complications (5) HERBERTH (acute kidney injury) Current Visit: No Status: Resolved Assessment and plan: Resolved. Renal functions within normal limits. (6) BPH (benign prostatic hypertrophy) with urinary retention Current Visit: Yes Status: Acute Assessment and plan: Per patient history. Patient wears attends and is incontinent. Follow up with urology as scheduled. (7) COPD (chronic obstructive pulmonary disease) Current Visit: Yes Status: Acute Assessment and plan: Mild COPD exacerbation. Lungs are diminished with wheezing and bilateral posterior bases. Patient is requiring supplemental oxygen at 2 L. He is not wearing oxygen at home. no need of systemic steroids Continue duo nebs, Pulmicort. Qualifiers: COPD type: COPD with acute exacerbation Qualified Code(s): J44.1 - Chronic obstructive pulmonary disease with (acute) exacerbation (8) Falls frequently Current Visit: Yes Status: Acute Assessment and plan: PT / OT eval May need ECF placement for short term rehab Patient has been here since 09/10 and has not seen physical therapy or occupational therapy yet. (9) DVT prophylaxis Current Visit: Yes Status: Acute Assessment and plan: Lovenox subcutaneous. - Time Spent With Patient less than 15 minutes - Subjective Interval history: JAVA J2EE LEAD at the bedside at 9 AM. is at bedside. Patient with dementia and is alert, oriented to name and date only. Patient gives yes or no answers, denies chest pain and no shortness of breath and no diaphoresis. reports the patient most probably has sleep apnea and he is a patient at the [place], he will need to be evaluated on outpatient basis for sleep apnea and need for CPAP at home. - Constitutional Vitals: Temp Pulse Resp BP Pulse Ox 98.4 F 63 16 111/67 97 09/13/17 16:15 09/13/17 16:15 09/13/17 16:15 09/13/17 16:15 09/13/17 16:15 General appearance: Present: cooperative, A&O X 2, pleasant, no acute distress. Absent: answers questions appropriately - Head Head exam: Present: atraumatic, normal inspection, normocephalic - Eye Eye exam: Present: normal appearance, conjuntiva pink, sclera anicteric - Neck Neck exam general surgery: Present: supple, trachea midline. Absent: lymphadenopathy - Respiratory Respiratory exam: Present: CTAB. Absent: accessory muscle use, chest wall tenderness, rales, respiratory distress, rhonchi, wheezes - Cardiovascular Cardiovascular exam: Present: RRR, +S1, +S2. Absent: diastolic murmur, gallop, rubs, systolic murmur - GI/Abdominal GI/Abdominal exam: Present: normal bowel sounds, soft. Absent: distended, hepatomegaly, tenderness - Extremities Exam Extremities exam: Present: normal capillary refill, warm, radial pulses palpable and symmetrical. Absent: calf tenderness, cyanotic, pedal edema, tenderness - Neurological Exam Neurological exam: Present: alert, oriented X3, no focal deficits. Absent: facial droop, speech deficit - Skin Skin exam: Present: dry, intact, normal color, warm. Absent: rash Internal Medicine: Result - Labs CBC & Chem 7: 09/13/17 04:53 09/13/17 04:53 Labs: Short CBC 09/13/17 Range/Units 04:53 WBC 8.6 (4.3-11.1) K/mcL Hgb 11.1 L (12.9-16.9) g/dL Hct 33.9 L (37.5-50.1) % Plt Count 331 (140-400) K/mcL BMP 09/13/17 04:53 Sodium 139 Potassium 4.3 Chloride 101 Carbon Dioxide 34 H BUN 20 Creatinine 0.80 Glucose 86 Calcium 9.3 - ABG Interpretation ABG results: PT/INR, D-dimer PT 13.1 Seconds (9.4-12.1) H 09/09/17 19:11 Consult Discharge Plan - Plan Referrals: [email or web address] [Primary Care Provider] - 09/19/17 10:30 am
[2017-09-13] MEDS: traZODone 50 MG TABLET PO SCH (21:25)
[2017-09-14 06:04] LABS: Hemoglobin A1C 5.5 %
[2017-09-14] MEDS: Aspirin 81 MG TAB.CHEW PO SCH (08:17)
[2017-09-14] MEDS: Finasteride 5 MG TABLET PO SCH (08:17)
[2017-09-14] MEDS: Metoprolol XL (24 HR) Succ 25 MG TAB.ER.24H PO SCH (08:17)
[2017-09-14] MEDS: Gabapentin 300 MG CAPSULE PO SCH (08:17)
[2017-09-14] MEDS: amLODIPine 5 MG TABLET PO SCH (08:17)
[2017-09-14] MEDS: Venlafaxine XR (24 HR) 75 MG CAP.ER.24H PO SCH (08:18)
[2017-09-14] MEDS: lamoTRIgine 100 MG TABLET PO SCH (08:18)
[2017-09-14] MEDS: Lisinopril 20 MG TABLET PO SCH (08:18)
[2017-09-14] MEDS: Budesonide Neb 0.5 MG/2 ML IH SCH (09:19)
--- NOTE | 2017-09-14 09:55 | Discharge Summary ---
Date of Encounter: 09/14/17 Time of Encounter: 09:40 - Discharge Diagnosis (1) Chest pain Priority: Primary Status: Acute Comments: Patient presented with chest pain from the [place] and his primary care office. He was found to have hypotension and chest pain, family reports recent history of weakness and increased falls. He was recently hospitalized for pneumonia and UTI, as well. He has had no chest pain since arrival. Patient had mildly elevated troponin with nonspecific ST changes on his EKG. Echo showed preserved EF and no significant valvular dysfunction. Patient had an abnormal stress test and was evaluated by cardiology. [facility] showed single-vessel disease with no intervention. Patient will continue aspirin, beta darwin, BEE inhibitor, statin. He also has nitroglycerin for home for when necessary. Qualifiers: Chest pain type: unspecified Qualified Code(s): R07.9 - Chest pain, unspecified (2) Elevated troponin Priority: Secondary Status: Acute Comments: Patient with mildly elevated troponin 0.09, 0.07, 0.05. This is flat and adynamic with COPD exacerbation. Plan as above. (3) Essential hypertension Priority: Secondary Status: Chronic Comments: Well-controlled. Continue home medications. (4) Diabetes mellitus Priority: Secondary Status: Chronic Comments: Well controlled. A1c is 5.5%. Continue home medications and diabetic diet. Continue Accu-Cheks per home schedule. Qualifiers: Diabetes mellitus type: type 2 Diabetes mellitus complication status: without complication Diabetes mellitus intermediate school teacher insulin use: without intermediate school teacher use Qualified Code(s): E11.9 - Type 2 diabetes mellitus without complications (5) HERBERTH (acute kidney injury) Priority: Secondary Status: Resolved Comments: Resolved. (6) BPH (benign prostatic hypertrophy) with urinary retention Priority: Secondary Status: Acute Comments: Per patient history. Patient is incontinent. Follow up with urology as scheduled. (7) COPD (chronic obstructive pulmonary disease) Priority: Secondary Status: Acute Comments: Patient has mild COPD exacerbation, lungs are diminished and clear today. He has been requiring supplemental oxygen, he was not wearing any today during assessment. He does not have home oxygen either. Patient has been treated with duo nebs and Pulmicort which he will continue at home. At this time there is no need for systemic steroids or antibiotics. Qualifiers: COPD type: COPD with acute exacerbation Qualified Code(s): J44.1 - Chronic obstructive pulmonary disease with (acute) exacerbation (8) Falls frequently Priority: Secondary Status: Acute Comments: Pt was evaluated by PT and OT, pt will return to normal routine at home. Pt states that he gets PT at [facility]. Pt lives with his who is with him at all times. (9) DVT prophylaxis Priority: Secondary Status: Acute Comments: Lovenox subcutaneous. - Discharge Medications Home Medications: Aspirin 81 mg PO DAILY #30 tab.chew 05/31/16 [Rx] Omeprazole 20 mg PO BID 05/31/16 [History] Tamsulosin [Flomax] 0.4 mg PO DAILY 05/31/16 [History] Carboxymethylcellulose Sodium [Refresh Liquigel] 1 drop BOTH EYES QID 07/18/16 [ History] Chlorthalidone 25 mg PO DAILY 07/18/16 [History] Finasteride [Proscar] 5 mg PO DAILY 07/18/16 [History] Gabapentin [Neurontin] 1,200 mg PO HS 07/18/16 [History] Gabapentin [Neurontin] 600 mg PO BID 07/18/16 [History] Morphine Immed Rel [Morphine Sulfate] 30 mg PO Q8HR PRN 07/18/16 [History] Polyethylene Glycol 3350 [MiraLAX] 17 gm PO HS 07/18/16 [History] Simvastatin [Zocor] 5 mg PO HS 07/18/16 [History] amLODIPine [Norvasc] 10 mg PO DAILY 07/18/16 [History] Multivitamin [One Daily Multivitamin] 1 each PO DAILY 11/19/16 [History] Prazosin HCl [Minipress] 2 mg PO HS 11/19/16 [History] Trazodone HCl 150 mg PO HS 11/19/16 [History] lamoTRIgine [Lamictal] 100 mg PO BID 11/19/16 [History] Acetaminophen [Tylenol] 650 mg PO TID PRN 09/09/17 [History] Dextrose [Glucose] 16 - 32 gm PO AD PRN 09/09/17 [History] Hydrophilic Cream [Basle] 1 appl TP DAILY 09/09/17 [History] Indomethacin [Indocin] 25 mg PO BIDWM 09/09/17 [History] Lisinopril 30 mg PO DAILY 09/09/17 [History] Metoprolol XL (24 HR) Succ [Toprol Xl] 25 mg PO DAILY 09/09/17 [History] Nut.tx.gluc.intoler,Lac-Fr,Soy [Glucerna] 1 can PO DAILY 09/09/17 [History] Venlafaxine XR (24 HR) [Effexor XR] 225 mg PO QAM 09/09/17 [History] Allergies/Adverse Reactions: 3 Allergy/AdvReac Type Severity Reaction Status Date / Time No Known Allergies Allergy Verified 09/09/17 18:33 Procedures/tests Complete & Pending: Procedures Performed prior 72 hours Category Date Time Status CL Cardiac Catheterization [CL] Routine Oracle Ebs Developer 09/13/17 09:38 Completed Date of admission: 09/10/17 13:33 [facility] care physician[facility] Consults: 09/11/17 14:14 Consult to Cardiology [CONS] Routine Comment: Consulting Provider: Cardiology Lisbeth Reason for Consult: abnormal stress test Call Completed: Yes Discharging clinician: Jimena Barba Anticipated date of discharge: 09/14/17 - Patient Status Disposition: Home, Self-Care Condition: Good Functional capacity at discharge: independent ambulation Overall status at discharge: patient is back to baseline - Discharge Instructions Follow Up With: [facility] [Primary Care Provider] - 09/19/17 10:30 am Additional Instructions: Follow up with your primary care provider at the [facility] within the next week to 10 days. Take your normal home medications as directed. Return to the emergency department as needed for any other problems or concerns , or if your symptoms return or worsen. Return to normal activities and diet as tolerated. - Diet and Activity Activity: increase activity as tolerated Diet: advance to your usual diet Hospital course: Mr. Kim is a 72 year old male with past medical history of hypertension, diabetes, SHAUNA, anxiety, PTSD, BPH, COPD who presents to the emergency department , was subsequently admitted for chest pain. Patient did have elevated troponin that was flat and a dynamic in the setting of COPD exacerbation. Patient presented initially to his primary care office at the [facility] where he was found to have hypotension and left chest pain. Family reports recent history of weakness and increased falls, recent hospitalization for pneumonia and UTI at [facility] in July. The patient did not have any chest pain since arrival. He had nonspecific ST changes on his EKG. Echo showed preserved EF and no significant valvular dysfunction normal wall motion in all segments. Patient did have an abnormal stress test, he was seen by cardiology, [facility] done 09/13/17 that revealed single vessel disease, no intervention. Patient will continue his home medications of aspirin, beta darwin, BEE inhibitor, statin. He also has nitroglycerin when necessary. Patient also had a mild COPD exacerbation, today his lungs are clear and diminished posteriorly, there is no respiratory distress, no wheezing, rales, rhonchi, stridor. He will continue his Pulmicort and home medications. Patient was not wearing oxygen this morning during examination. His vitals are stable, he is afebrile with no tachycardia, he is normotensive. Renal function has returned to normal, labs are stable and within normal limits. Patient is appropriate for discharge. He will follow up with the [facility] team at the [facility] for follow-up and cardiology for follow-up as scheduled. - Time Spent with Patient Total time spent providing and/or coordinating discharge services: Less than 30 minutes - Constitutional Vitals: Temp Pulse Resp BP Pulse Ox 97.5 F L 63 20 131/79 97 09/14/17 06:56 09/14/17 06:56 09/14/17 06:56 09/14/17 06:56 09/14/17 06:56 General appearance: Present: cooperative, A&O X 2, pleasant, no acute distress. Absent: answers questions appropriately - Head Head exam: Present: atraumatic, normal inspection, normocephalic - Eye Eye exam: Present: normal appearance, conjuntiva pink, sclera anicteric - Neck Neck exam general surgery: Present: supple, trachea midline. Absent: lymphadenopathy, tenderness - Respiratory Respiratory exam: Present: CTAB. Absent: accessory muscle use, chest wall tenderness, rales, respiratory distress, rhonchi, wheezes - Cardiovascular Cardiovascular exam: Present: RRR, +S1, +S2. Absent: diastolic murmur, gallop, rubs, systolic murmur - GI/Abdominal GI/Abdominal exam: Present: normal bowel sounds, soft. Absent: distended, hepatomegaly, tenderness - Extremities Exam Extremities exam: Present: normal capillary refill, normal inspection, warm, radial pulses palpable and symmetrical. Absent: calf tenderness, cyanotic, pedal edema, tenderness - Neurological Exam Neurological exam: Present: alert, oriented X3, no focal deficits. Absent: motor sensory deficit, facial droop, speech deficit - Skin Skin exam: Present: dry, intact, normal color, warm. Absent: rash
[2017-09-14 11:35] VITALS: BP 107/66
== END 2017-09-14 12:26 | disposition home or self-care (01) | DRG 191 ==
LOC: EMEROO 18:18 → 3BNU 21:03 → INTOOBSV 21:03 → 3BNU 21:35
PROVIDERS: ADMIT Internal Medicine; ATTEND Registered Nurse